=== PATIENT | male | born 1980 | race Two or more races ===

== ENCOUNTER 2022-06-30 12:36 | Emergency (ER) | payer BC ==
[~2022-06-30] VITALS: Ht 185.4 cm; Wt 103.9 kg
[2022-06-30 14:17] VITALS: BP 149/91
[2022-06-30] MEDS ORDERED: IBUP800T27 PO (16:23)
[2022-06-30] MEDS ORDERED: CEPH-510 PO (16:23)
[2022-06-30] MEDS ORDERED: KETOROLAC TROMETH 60MG/2ML VIAL IM ONE (16:30)
== END 2022-06-30 16:33 | disposition home or self-care (01) ==
LOC: ER 12:36
DX: S39.011A Strain of muscle, fascia and tendon of abdomen, initial encounter (principal); S23.41XA Sprain of ribs, initial encounter; I88.0 Nonspecific mesenteric lymphadenitis; X58.XXXA Exposure to other specified factors, initial encounter; Y93.9 Activity, unspecified; Y92.89 Other specified places as the place of occurrence of the external cause; Y99.8 Other external cause status
CPT/HCPCS: 74176; 96372; 99285; J1885